=== PATIENT | female | born 1965 | race Caucasian/White ===

== ENCOUNTER 2022-01-22 11:02 | Outpatient (RCR) | payer SELFPAY ==
[~2022-01-22] VITALS: Ht 157.5 cm; Wt 47.0 kg
[~2022-01-22 11:02] MED LIST: B-1100 MG PO; FOLIC ACID 11 MG/TA1 PO; IMODIUM 2MG CAPS2 MG PO; IPRATROPIUM BROM3 M1 IH; MAG-OX 400400 MG/TAB PO; MEDROL 4MG DOSPA4 MG PO; MORPHINE SULF2 MG/M1 IV; MOTRIN 200200 MG/TAB PO; NEB MC; OMNICEF 300MG300 MG PO; OXYCODONE H5 MG/5 ML PO; OXYGEN; PRILOSEC 20MG20 MG PO; PROTONIX 40MG T40 MG PO; ROBITUSSIN DM 105 ML PO; ROXICODONE 55 MG/TAB PO; SENOKOT S 50 MG1 TAB PEG; THERAGRAN1 TA1 PO; TYLENOL 325MG325 MG PO; TYLENOL SU650 MG/SUP RC; ZOFRAN INJ4 MG/2 ML IV
[2022-01-22 12:40] VITALS: BP 120/75; PULSE 92; TEMP 98.4
[2022-01-22] MEDS ORDERED: MOTRIN 400400 MG/TAB PO (12:54)
--- NOTE | 2022-01-22 12:55 | NUR ---
Pt ambulates out from dept with steady gait after refusing wheelchair. accompanies her. PICC site wrapped with EDISON. Hx and meds reviewed. Pt will be seen in [place] for weekly PICC cares and states this has been set up for Thu going forward.
== END 2022-01-22 12:57 | disposition home or self-care (01) ==
LOC: EUO 11:02
DX: C32.1 Malignant neoplasm of supraglottis (principal)
CPT/HCPCS: C1751